=== PATIENT | female | born 1935 | race Caucasian/White ===

== ENCOUNTER 2018-04-29 22:10 | Emergency (ER) | payer MEDICARE, SELFPAY ==
--- NOTE | 2018-04-29 00:20 | DI.CT_ITS ---
SYMPTOM/DIAGNOSIS: RIGHT CVA PAIN CT ABDOMEN AND PELVIS: Renal colic CT was performed according to protocol. There are no priors for comparison. There are mild dependent atelectatic changes seen in the lung bases. Lack of IV contrast does limit evaluation of the abdominal and pelvic organs. The liver is normal in size. There are several hypodense lesions seen within the liver. The largest is seen in the left lobe and measures 2.7 cm. These likely all represent cysts. Follow up is clinically appropriate. The gallbladder is negative. No biliary ductal dilatation is present. The pancreas, spleen and right adrenal gland are unremarkable. There is nodularity of the left adrenal gland which may represent a benign lesion such as an adenoma. The kidneys show no evidence of nephrolithiasis, ureterolithiasis or hydronephrosis. The urinary bladder is distended. Please correlate for clinical symptoms of urinary retention. The patient appears to be status post hysterectomy. The abdominal aorta is of normal caliber. No significant abdominal or pelvic adenopathy, ascites or pneumoperitoneum is seen. The bowel shows no evidence of obstruction or inflammation. There is diverticulosis of the colon but no evidence of acute diverticulitis. No findings to suggest an acute appendicitis are present. There is a small to moderate amount of retained stool throughout the colon. The bones appear osteopenic. There is multi-level degenerative change present. The findings are most marked at L4-5 and L5-S1. There are mild degenerative changes of the hips and sacroiliac joints. There are old healed right rib fractures. IMPRESSION: 1. No evidence of an acute abdomen. 2. No evidence of nephrolithiasis or hydronephrosis 3. Distended urinary bladder. Please correlate clinically for evidence of urinary retention.
[2018-04-29 22:10] VITALS: BP 126/73; PULSE 88; RESP 22; TEMP 36.6; O2SAT 96
[2018-04-29 22:17] VITALS: RESP 16
[2018-04-29 22:43] LABS: Abs Immature Grans 0.04 k/cumm (0.0-0.09); Absolute Basophil Count 0.04 k/cumm (0.0-0.2); Absolute Lymphocyte Count 2.79 k/cumm (1.2-3.4); Absolute Monocyte Count 0.69 k/cumm (0.11-0.7); Absolute Neutrophil Count 3.66 k/cumm (1.2-6.7); Basophils % 0.5; Eosinophils % 1.4; HCT 47.3 % (36.0-46.0); HGB 16.5 g/dL (12.0-15.5); Immature Grans % 0.5; Lymphocytes % 38.1; Mean Corp. HGB Concentration 34.9 g/dL (32.0-36.0); Mean Corpuscular Hemoglobin 29.1 pg (27.0-33.0); Mean Corpuscular Volume 83.4 fL (80-95); Mean Platelet Volume 9.3 fL (8.0-11.0); Monocytes % 9.4; Neutrophils % 50.1; Platelet Count 218 x1000/uL (130-400); RBC 5.67 m/cumm (4.00-5.20); RBC Distribution Width 13.5 % (11.7-14.6); White Blood Cell Count 7.32 k/cumm (4.4-10.8)
[2018-04-29 22:50] LABS: Bilirubin Negative (Negative); Blood Negative (Negative); Clarity Clear; Glucose Negative (Negative); Ketones Negative (Negative); Leukocyte Esterase Small (Negative); Nitrite Negative (Negative); Urobilinogen 0.2 EU/dL (Up TO 0.2)
[2018-04-29 22:57] LABS: *AMPHETAMINES SCREEN URINE Negative (Negative); *BARBITURATES SCREEN URINE Negative (Negative); *BENZODIAZEPINES SCREEN URINE Negative (Negative); Bacteria Negative HPF (Negative); C & S Indicated? Yes; Cannabinoids THC Negative (Negative); Casts Negative LPF (Negative); Cocaine Screen,Urine Negative (Negative); Crystals Negative HPF (Negative); Epithelial Cells Few HPF (Negative); METHADONE URINE SCREEN Negative (Negative); Mucus Negative (Negative); OPIATES URINE SCREEN Negative (Negative); Other Cells Negative (Negative); RBC Negative (0-2)
[2018-04-29 22:58] LABS: Tricyclic Antidepressants POSITIVE (Negative)
[2018-04-29 23:00] VITALS: BP 108/61; PULSE 79; PULSE 81; RESP 18; O2SAT 94
[2018-04-29 23:06] LABS: ALT 22 U/L (12-78); Albumin 3.9 g/dL (3.4-5.0); Alkaline Phosphatase 118 U/L (46-116); Anion Gap 13.2 mmol/L (3-11); BUN 19 mg/dL (7-18); Bilirubin, Total 0.3 mg/dL (0.2-1.0); CO2 23.8 mmol/L (21.0-32.0); CREATININE 0.79 mg/dL (0.55-1.02); Calcium 8.9 mg/dL (8.5-10.1); Chloride 100 mmol/L (98-107); Glucose 127 mg/dL (70-100); Potassium 3.9 mmol/L (3.5-5.1); Sodium 137 mmol/L (136-145); TSH (W/Ref FT4) 3.58 uIU/mL (0.358-3.74); Total Protein 6.7 g/dL (6.4-8.2)
[2018-04-29 23:08] LABS: INR 1.1 (1.0-3.5); Prothrombin Time 10.4 sec (9.3-10.8)
[2018-04-29 23:19] LABS: Salicylate < 2.8 mg/dL (2.8-20.0)
[2018-04-29 23:21] LABS: Acetaminophen < 2 ug/mL (10-30)
--- NOTE | 2018-04-29 23:29 | W.ED.GENAD ---
Discharge Plan Disposition Patient Disposition: HOME Discharge Details Chief Complaint: OD/Poison Clinical Impression: Accidental medication overdose Reason For Visit: JUSTICE Primary Care Provider: SÁNCHEZ HIDALGO ED Provider: Jensen Haskins Home Meds and New Rx's Prescriptions: Continue cyclobenzaprine 5 mg Tablet 5 mg PO TID PRNRF: 0 naproxen sodium 500 mg Tablet, Er Multiphase 24 Hr 1,000 mg PO DAILY RF: 0 Discharge Instructions Instructions: Depression (ED) Additional Instructions: Please take you medication as prescribed. Please follow-up with your primary care physician. Call on Wednesday. Return to the ER for any worsening or new concerning symptoms. Referrals: [facility] [Provider Group] Discharge Data Discharge Date/Time-TO BE ENTERED AT DEPARTURE: 04/30/18 10:35 Medical Decision Making 23:45 -- 82yo f with history of dementia here with accidental overdose of Flexeril and naproxen over the past 48 hour while treating her right mid back pain which she has experienced intermittently in flares for the past 16 years. Patient is well-appearing with no signs of toxicity. ECG reviewed and interpreted by me: Normal sinus rhythm 83 bpm, normal axis, nondiagnostic. I called and spoke with poison control who recommend observation 4-6 hours. Monitor for signs of anticholinergic toxidrome. Given severe chronic intermittent rt back pain some some urinary symptoms, plan to CT renal protocol. Daughter who does not live locally has expressed concern with potential suicidality. Nursing spoke with the patient's friend Piper who notes that the patient did not specifically state she suicidal but has made vague statements about wanting to because of pain in the past. Patient does note that she has depression intermittently and has had thoughts of suicidality when she is having severe pain but did not have these thoughts over the past couple days and specifically did not overdose on these medications in an attempt to harm herself or commit suicide. Screening labs reviewed and mild anion gap acidosis noted. Will give IVF. 1:30 --CT of the abdomen pelvis reviewed and interpreted by radiology: Mild distention of the urinary bladder, clinical correlation for urinary retention is recommended. No additional acute findings within the abdomen and pelvis. Of note there are healed fracture deformities of the posterior right 11th and 12th ribs. Spoke with daughter Veronika at and updated her as to course. 6:50 -- After prolonged ED observation, patient has remained stable with no signs of toxicity. Plan to discharge with outpatient follow-up. Friend to assist in transition home. I will as care management to contact PCP to discuss outpatient mental health social worker available to patient. Disposition decision was made weighing the risks and benefits of hospitalization versus outpatient treatment, the risk for further decompensation, and the patient's wishes. The patient was stable and requested discharge. Prior to discharge, my usual and customary return precautions were reviewed with the patient - this included follow-up instructions and reason to return to the emergency department if condition worsens, does not improve as expected, or other new concerns arise. HPI General Mode of arrival: EMS. Date/Time Provider Initiated Documentation: 04/29/18 22:12. Limitations to Documentation: no limitations. Information obtained by: EMS. HPI Narrative: 82yo f with history of dementia and chronic intermittent right back pain, here with chief complaint of accidental overdose of medication. Patient notes that she took too much of her medication over the past 2 days. Patient specifically states that she took more than prescribed amount of flexeril and naproxen to treat her pain over the past 48 hours. No other ingestion. Pain currently resolved. Pill count confirms that she ingested 22 tabs of flexeril 5mg and 22 tabs of naproxen 500mg over the past 48 hours. Friends note that she has increased confusion over the past few weeks. Daughter notes concern for depression and potential for suicidal attempt and self harm. Patient denies suicidality. She states that she has had suicidal thoughts in the past when she has severe back pain. She has had thoughts recently but specifically states that she is not suicidal now and did not attempt to harm herself or kill herself by overdosing on her medications. Related Data Home Medications Medication Instructions Recorded Confirmed cyclobenzaprine 5 mg PO TID PRN 04/29/18 04/29/18 naproxen sodium 1,000 mg PO DAILY 04/29/18 04/29/18 Allergies Allergy/AdvReac Type Severity Reaction Status Date / Time No Known Allergies Allergy Unverified 04/29/18 23:58 General Stated Complaint: OD/Poison PRESTON: 2 Review of Systems Review of Systems All systems reviewed & are unremarkable except as noted in HPI and below Gastrointestinal Denies abdominal pain and Denies nausea Genitourinary Denies hematuria, Reports urinary frequency (when she experiences back pain) and Denies dysuria Musculoskeletal Reports as per HPI Psychiatric Reports depression (at times) and Denies suicidal ideation PFSH Medical History Dementia (Chronic) Social History Smoking/Tobacco Use Status: Never Exam Const General: cooperative and no acute distress HENMT Head: normocephalic and atraumatic Mouth: moist mucous membranes Eyes Conjunctivae: normal conjunctivae Sclera: normal sclerae EOM: EOM intact bilaterally Neck Neck: trachea midline and supple Resp Auscultation: clear to auscultation bilaterally, no rales, no rhonchi and no wheezes Cardio Jugular venous pressure: no JVD Rate: regular rate and not tachycardic Rhythm: regular rhythm GI Palpation: soft, not firm, no guarding, no masses, not rigid and nontender Skin General skin exam: no rashes or lesions noted Neuro General: alert, awake, oriented x3 and tone normal Extrem General: no edema Psych Appearance: grossly normal Mental Status: mental status grossly normal Speech and Movement: speech and movement normal Mood: congruent mood Affect: normal affect Attitude: cooperative Thought Content: suicidality Course Vital Signs Temperature 36.6 C 04/29/18 22:10 Pulse 88 04/29/18 22:10 Respiratory Rate 22 04/29/18 22:10 Blood Pressure 126/73 04/29/18 22:10 Pulse Oximetry 96 04/29/18 22:10 Temperature 36.6 C 04/29/18 22:10 Temperature Source Skin 04/29/18 22:10 Pulse 88 04/29/18 22:10 Respiratory Rate 16 04/29/18 22:17 Respiratory Effort Non-Labored 04/29/18 22:38 Respiratory Depth Normal 04/29/18 22:17 Respiratory Pattern Normal 04/29/18 22:17 Blood Pressure 126/73 04/29/18 22:10 Pulse Oximetry 96 04/29/18 22:10 Oxygen Delivery Method Room Air 04/29/18 22:10 Oxygen Flow Rate 0 04/29/18 22:10 Lab/Test Results Lab/Test Results: 04/29/18 22:25 Urine - Reflex from Ua Urine Culture - Pending Laboratory Tests Range/Units 04/29/18 04/29/18 04/29/18 22:25 22:25 22:30 WBC (4.4-10.8) k/cumm RBC (4.00-5.20) m/cumm Hgb (12.0-15.5) g/dL Hct (36.0-46.0) % MCV (80-95) fL MCH (27.0-33.0) pg MCHC (32.0-36.0) g/dL RDW (11.7-14.6) % Plt Count (130-400) x1000/uL MPV (8.0-11.0) fL Immature Gran % Neutrophils % Lymphocytes % Monocytes % Eosinophils % Basophils % Absolute Neutrophils (1.2-6.7) k/cumm Absolute Lymphocytes (1.2-3.4) k/cumm Absolute Monocytes (0.11-0.7) k/cumm Absolute Eosinophils (0.0-0.7) k/cumm Absolute Basophils (0.0-0.2) k/cumm PT (9.3-10.8) sec INR (1.0-3.5) Sodium (136-145) mmol/L 137 Potassium (3.5-5.1) mmol/L 3.9 Chloride (98-107) mmol/L 100 Carbon Dioxide (21.0-32.0) mmol/L 23.8 Anion Gap (3-11) mmol/L 13.2 H BUN (7-18) mg/dL 19 H Creatinine (0.55-1.02) mg/dL 0.79 Estimated GFR/1.73 m2 (mL/min/1.73m2) >= 60.00 Glucose (70-100) mg/dL 127 H Calcium (8.5-10.1) mg/dL 8.9 Total Bilirubin (0.2-1.0) mg/dL 0.3 ALT (12-78) U/L 22 Alkaline Phosphatase (46-116) U/L 118 H Total Protein (6.4-8.2) g/dL 6.7 Albumin (3.4-5.0) g/dL 3.9 TSH (0.358-3.74) uIU/mL 3.58 Urine Color (Yellow) Yellow Urine Clarity Clear Urine pH (5-8) 5.0 Ur Specific [place] (1.005-1.025) 1.010 Urine Protein (Negative) mg/dL Negative Urine Ketones (Negative) mg/dL Negative Urine Blood (Negative) Negative Urine Nitrite (Negative) Negative Urine Bilirubin (Negative) Negative Urine Urobilinogen (Up TO 0.2) EU/dL 0.2 Ur Leukocyte Esterase (Negative) Small H Urine RBC (0-2) Negative Urine WBC (0-5) HPF 5-10 Ur Epithelial Cells (Negative) HPF Few Urine Crystals (Negative) HPF Negative Urine Bacteria (Negative) HPF Negative Urine Casts (Negative) LPF Negative Urine Mucus (Negative) Negative Urine Other (Negative) Negative Ur Culture Indicated? Yes Urine Glucose (Negative) mg/dL Negative Salicylates (2.8-20.0) mg/dL Urine Opiates Screen (Negative) Negative Urine Methadone Screen (Negative) Negative Acetaminophen (10-30) ug/mL Ur Barbiturates Screen (Negative) Negative Ur Tricyclics Screen (Negative) Positive Ur Amphetamines Screen (Negative) Negative U Benzodiazepines Scrn (Negative) Negative Urine Cocaine Screen (Negative) Negative Ur THC Screen (Negative) Negative Range/Units 04/29/18 04/29/18 04/29/18 22:30 22:30 22:30 WBC (4.4-10.8) k/cumm 7.32 RBC (4.00-5.20) m/cumm 5.67 H Hgb (12.0-15.5) g/dL 16.5 H Hct (36.0-46.0) % 47.3 H MCV (80-95) fL 83.4 MCH (27.0-33.0) pg 29.1 MCHC (32.0-36.0) g/dL 34.9 RDW (11.7-14.6) % 13.5 Plt Count (130-400) x1000/uL 218 MPV (8.0-11.0) fL 9.3 Immature Gran % 0.5 Neutrophils % 50.1 Lymphocytes % 38.1 Monocytes % 9.4 Eosinophils % 1.4 Basophils % 0.5 Absolute Neutrophils (1.2-6.7) k/cumm 3.66 Absolute Lymphocytes (1.2-3.4) k/cumm 2.79 Absolute Monocytes (0.11-0.7) k/cumm 0.69 Absolute Eosinophils (0.0-0.7) k/cumm 0.10 Absolute Basophils (0.0-0.2) k/cumm 0.04 PT (9.3-10.8) sec 10.4 INR (1.0-3.5) 1.1 Sodium (136-145) mmol/L Potassium (3.5-5.1) mmol/L Chloride (98-107) mmol/L Carbon Dioxide (21.0-32.0) mmol/L Anion Gap (3-11) mmol/L BUN (7-18) mg/dL Creatinine (0.55-1.02) mg/dL Estimated GFR/1.73 m2 (mL/min/1.73m2) Glucose (70-100) mg/dL Calcium (8.5-10.1) mg/dL Total Bilirubin (0.2-1.0) mg/dL ALT (12-78) U/L Alkaline Phosphatase (46-116) U/L Total Protein (6.4-8.2) g/dL Albumin (3.4-5.0) g/dL TSH (0.358-3.74) uIU/mL Urine Color (Yellow) Urine Clarity Urine pH (5-8) Ur Specific [place] (1.005-1.025) Urine Protein (Negative) mg/dL Urine Ketones (Negative) mg/dL Urine Blood (Negative) Urine Nitrite (Negative) Urine Bilirubin (Negative) Urine Urobilinogen (Up TO 0.2) EU/dL Ur Leukocyte Esterase (Negative) Urine RBC (0-2) Urine WBC (0-5) HPF Ur Epithelial Cells (Negative) HPF Urine Crystals (Negative) HPF Urine Bacteria (Negative) HPF Urine Casts (Negative) LPF Urine Mucus (Negative) Urine Other (Negative) Ur Culture Indicated? Urine Glucose (Negative) mg/dL Salicylates (2.8-20.0) mg/dL < 2.8 L Urine Opiates Screen (Negative) Urine Methadone Screen (Negative) Acetaminophen (10-30) ug/mL < 2 L Ur Barbiturates Screen (Negative) Ur Tricyclics Screen (Negative) Ur Amphetamines Screen (Negative) U Benzodiazepines Scrn (Negative) Urine Cocaine Screen (Negative) Ur THC Screen (Negative)
[2018-04-29 23:30] LABS: ETHANOL BLOOD < 3.0 mg/dL (<3)
--- NOTE | 2018-04-29 23:36 | ED.GENADUL_ITS ---
Discharge Plan Disposition Patient Disposition: HOME Discharge Details Chief Complaint: OD/Poison Clinical Impression: Accidental medication overdose Reason For Visit: JUSTICE Primary Care Provider: SÁNCHEZ HIDALGO ED Provider: Jensen Haskins Home Meds and New Rx's Prescriptions: Continue cyclobenzaprine 5 mg Tablet 5 mg PO TID PRNRF: 0 naproxen sodium 500 mg Tablet, Er Multiphase 24 Hr 1,000 mg PO DAILY RF: 0 Discharge Instructions Instructions: Depression (ED) Additional Instructions: Please take you medication as prescribed. Please follow-up with your primary care physician. Call on Wednesday. Return to the ER for any worsening or new concerning symptoms. Referrals: [facility] [employer] [Provider Group] Discharge Data Discharge Date/Time-TO BE ENTERED AT DEPARTURE: 04/30/18 10:35 Medical Decision Making 23:45 -- 82yo f with history of dementia here with accidental overdose of Flexeril and naproxen over the past 48 hour while treating her right mid back pain which she has experienced intermittently in flares for the past 16 years. Patient is well-appearing with no signs of toxicity. ECG reviewed and interpreted by me: Normal sinus rhythm 83 bpm, normal axis, nondiagnostic. I called and spoke with poison control who recommend observation 4-6 hours. Monitor for signs of anticholinergic toxidrome. Given severe chronic intermittent rt back pain some some urinary symptoms, plan to CT renal protocol. Daughter who does not live locally has expressed concern with potential suicidality. Nursing spoke with the patient's friend Piper who notes that the patient did not specifically state she suicidal but has made vague statements about wanting to because of pain in the past. Patient does note that she has depression intermittently and has had thoughts of suicidality when she is having severe pain but did not have these thoughts over the past couple days and specifically did not overdose on these medications in an attempt to harm herself or commit suicide. Screening labs reviewed and mild anion gap acidosis noted. Will give IVF. 1:30 --CT of the abdomen pelvis reviewed and interpreted by radiology: Mild distention of the urinary bladder, clinical correlation for urinary retention is recommended. No additional acute findings within the abdomen and pelvis. Of note there are healed fracture deformities of the posterior right 11th and 12th ribs. Spoke with daughter Veronika at and updated her as to course. 6:50 -- After prolonged ED observation, patient has remained stable with no signs of toxicity. Plan to discharge with outpatient follow-up. Friend to assist in transition home. I will as care management to contact PCP to discuss outpatient social work nurse available to patient. Disposition decision was made weighing the risks and benefits of hospitalization versus outpatient treatment, the risk for further decompensation , and the patient's wishes. The patient was stable and requested discharge. Prior to discharge, my usual and customary return precautions were reviewed with the patient - this included follow-up instructions and reason to return to the emergency department if condition worsens, does not improve as expected, or other new concerns arise. HPI General Mode of arrival: EMS . Date/Time Provider Initiated Documentation: 04/29/18 22:12 . Limitations to Documentation: no limitations . Information obtained by: EMS . HPI Narrative: 82yo f with history of dementia and chronic intermittent right back pain, here with chief complaint of accidental overdose of medication. Patient notes that she took too much of her medication over the past 2 days. Patient specifically states that she took more than prescribed amount of flexeril and naproxen to treat her pain over the past 48 hours. No other ingestion. Pain currently resolved. Pill count confirms that she ingested 22 tabs of flexeril 5mg and 22 tabs of naproxen 500mg over the past 48 hours. Friends note that she has increased confusion over the past few weeks. Daughter notes concern for depression and potential for suicidal attempt and self harm. Patient denies suicidality. She states that she has had suicidal thoughts in the past when she has severe back pain. She has had thoughts recently but specifically states that she is not suicidal now and did not attempt to harm herself or kill herself by overdosing on her medications. Related Data Home Medications Medication Instructions Recorded Confirmed cyclobenzaprine 5 mg PO TID PRN 04/29/18 04/29/18 naproxen sodium 1,000 mg PO DAILY 04/29/18 04/29/18 Allergies Allergy/AdvReac Type Severity Reaction Status Date / Time No Known Allergies Allergy Unverified 04/29/18 23:58 General Stated Complaint: OD/Poison PRESTON: 2 Review of Systems Review of Systems All systems reviewed & are unremarkable except as noted in HPI and below Gastrointestinal Denies abdominal pain and Denies nausea Genitourinary Denies hematuria, Reports urinary frequency (when she experiences back pain) and Denies dysuria Musculoskeletal Reports as per HPI Psychiatric Reports depression (at times) and Denies suicidal ideation PFSH Medical History Dementia (Chronic) Social History Smoking/Tobacco Use Status: Never Exam Const General: cooperative and no acute distress HENMT Head: normocephalic and atraumatic Mouth: moist mucous membranes Eyes Conjunctivae: normal conjunctivae Sclera: normal sclerae EOM: EOM intact bilaterally Neck Neck: trachea midline and supple Resp Auscultation: clear to auscultation bilaterally, no rales, no rhonchi and no wheezes Cardio Jugular venous pressure: no JVD Rate: regular rate and not tachycardic Rhythm: regular rhythm GI Palpation: soft, not firm, no guarding, no masses, not rigid and nontender Skin General skin exam: no rashes or lesions noted Neuro General: alert, awake, oriented x3 and tone normal Extrem General: no edema Psych Appearance: grossly normal Mental Status: mental status grossly normal Speech and Movement: speech and movement normal Mood: congruent mood Affect: normal affect Attitude: cooperative Thought Content: suicidality Course Vital Signs Temperature 36.6 C 04/29/18 22:10 Pulse 88 04/29/18 22:10 Respiratory Rate 22 04/29/18 22:10 Blood Pressure 126/73 04/29/18 22:10 Pulse Oximetry 96 04/29/18 22:10 Temperature 36.6 C 04/29/18 22:10 Temperature Source Skin 04/29/18 22:10 Pulse 88 04/29/18 22:10 Respiratory Rate 16 04/29/18 22:17 Respiratory Effort Non-Labored 04/29/18 22:38 Respiratory Depth Normal 04/29/18 22:17 Respiratory Pattern Normal 04/29/18 22:17 Blood Pressure 126/73 04/29/18 22:10 Pulse Oximetry 96 04/29/18 22:10 Oxygen Delivery Method Room Air 04/29/18 22:10 Oxygen Flow Rate 0 04/29/18 22:10 Lab/Test Results Lab/Test Results: 04/29/18 22:25 Urine - Reflex from Ua Urine Culture - Pending Laboratory Tests Range/Units 04/29/18 04/29/18 04/29/18 22:25 22:25 22:30 WBC (4.4-10.8) k/cumm RBC (4.00-5.20) m/cumm Hgb (12.0-15.5) g/dL Hct (36.0-46.0) % MCV (80-95) fL MCH (27.0-33.0) pg MCHC (32.0-36.0) g/dL RDW (11.7-14.6) % Plt Count (130-400) x1000/uL MPV (8.0-11.0) fL Immature Gran % Neutrophils % Lymphocytes % Monocytes % Eosinophils % Basophils % Absolute Neutrophils (1.2-6.7) k/cumm Absolute Lymphocytes (1.2-3.4) k/cumm Absolute Monocytes (0.11-0.7) k/cumm Absolute Eosinophils (0.0-0.7) k/cumm Absolute Basophils (0.0-0.2) k/cumm PT (9.3-10.8) sec INR (1.0-3.5) Sodium (136-145) mmol/L 137 Potassium (3.5-5.1) mmol/L 3.9 Chloride (98-107) mmol/L 100 Carbon Dioxide (21.0-32.0) mmol/L 23.8 Anion Gap (3-11) mmol/L 13.2 H BUN (7-18) mg/dL 19 H Creatinine (0.55-1.02) mg/dL 0.79 Estimated GFR/1.73 m2 (mL/min/1.73m2) >= 60.00 Glucose (70-100) mg/dL 127 H Calcium (8.5-10.1) mg/dL 8.9 Total Bilirubin (0.2-1.0) mg/dL 0.3 ALT (12-78) U/L 22 Alkaline Phosphatase (46-116) U/L 118 H Total Protein (6.4-8.2) g/dL 6.7 Albumin (3.4-5.0) g/dL 3.9 TSH (0.358-3.74) uIU/mL 3.58 Urine Color (Yellow) Yellow Urine Clarity Clear Urine pH (5-8) 5.0 Ur Specific [place] (1.005-1.025) 1.010 Urine Protein (Negative) mg/dL Negative Urine Ketones (Negative) mg/dL Negative Urine Blood (Negative) Negative Urine Nitrite (Negative) Negative Urine Bilirubin (Negative) Negative Urine Urobilinogen (Up TO 0.2) EU/dL 0.2 Ur Leukocyte Esterase (Negative) Small H Urine RBC (0-2) Negative Urine WBC (0-5) HPF 5-10 Ur Epithelial Cells (Negative) HPF Few Urine Crystals (Negative) HPF Negative Urine Bacteria (Negative) HPF Negative Urine Casts (Negative) LPF Negative Urine Mucus (Negative) Negative Urine Other (Negative) Negative Ur Culture Indicated? Yes Urine Glucose (Negative) mg/dL Negative Salicylates (2.8-20.0) mg/dL Urine Opiates Screen (Negative) Negative Urine Methadone Screen (Negative) Negative Acetaminophen (10-30) ug/mL Ur Barbiturates Screen (Negative) Negative Ur Tricyclics Screen (Negative) Positive Ur Amphetamines Screen (Negative) Negative U Benzodiazepines Scrn (Negative) Negative Urine Cocaine Screen (Negative) Negative Ur THC Screen (Negative) Negative Range/Units 04/29/18 04/29/18 04/29/18 22:30 22:30 22:30 WBC (4.4-10.8) k/cumm 7.32 RBC (4.00-5.20) m/cumm 5.67 H Hgb (12.0-15.5) g/dL 16.5 H Hct (36.0-46.0) % 47.3 H MCV (80-95) fL 83.4 MCH (27.0-33.0) pg 29.1 MCHC (32.0-36.0) g/dL 34.9 RDW (11.7-14.6) % 13.5 Plt Count (130-400) x1000/uL 218 MPV (8.0-11.0) fL 9.3 Immature Gran % 0.5 Neutrophils % 50.1 Lymphocytes % 38.1 Monocytes % 9.4 Eosinophils % 1.4 Basophils % 0.5 Absolute Neutrophils (1.2-6.7) k/cumm 3.66 Absolute Lymphocytes (1.2-3.4) k/cumm 2.79 Absolute Monocytes (0.11-0.7) k/cumm 0.69 Absolute Eosinophils (0.0-0.7) k/cumm 0.10 Absolute Basophils (0.0-0.2) k/cumm 0.04 PT (9.3-10.8) sec 10.4 INR (1.0-3.5) 1.1 Sodium (136-145) mmol/L Potassium (3.5-5.1) mmol/L Chloride (98-107) mmol/L Carbon Dioxide (21.0-32.0) mmol/L Anion Gap (3-11) mmol/L BUN (7-18) mg/dL Creatinine (0.55-1.02) mg/dL Estimated GFR/1.73 m2 (mL/min/1.73m2) Glucose (70-100) mg/dL Calcium (8.5-10.1) mg/dL Total Bilirubin (0.2-1.0) mg/dL ALT (12-78) U/L Alkaline Phosphatase (46-116) U/L Total Protein (6.4-8.2) g/dL Albumin (3.4-5.0) g/dL TSH (0.358-3.74) uIU/mL Urine Color (Yellow) Urine Clarity Urine pH (5-8) Ur Specific [place] (1.005-1.025) Urine Protein (Negative) mg/dL Urine Ketones (Negative) mg/dL Urine Blood (Negative) Urine Nitrite (Negative) Urine Bilirubin (Negative) Urine Urobilinogen (Up TO 0.2) EU/dL Ur Leukocyte Esterase (Negative) Urine RBC (0-2) Urine WBC (0-5) HPF Ur Epithelial Cells (Negative) HPF Urine Crystals (Negative) HPF Urine Bacteria (Negative) HPF Urine Casts (Negative) LPF Urine Mucus (Negative) Urine Other (Negative) Ur Culture Indicated? Urine Glucose (Negative) mg/dL Salicylates (2.8-20.0) mg/dL < 2.8 L Urine Opiates Screen (Negative) Urine Methadone Screen (Negative) Acetaminophen (10-30) ug/mL < 2 L Ur Barbiturates Screen (Negative) Ur Tricyclics Screen (Negative) Ur Amphetamines Screen (Negative) U Benzodiazepines Scrn (Negative) Urine Cocaine Screen (Negative) Ur THC Screen (Negative)
[2018-04-29 23:40] VITALS: PULSE 80; RESP 20; O2SAT 94
[2018-04-29 23:47] LABS: AST 9 U/L (15-37)
[2018-04-29 23:50] VITALS: PULSE 79; RESP 25; O2SAT 95
[2018-04-29] MEDS: Normal Saline 1,000 ML 1000 ML IV (23:53)
[2018-04-30] VITALS (15 sets, daily range): BP systolic 115–124; BP diastolic 67–71; PULSE 71–99; RESP 14–24; TEMP 36.7; O2SAT 93–100
--- NOTE | 2018-04-30 00:44 | DI.VRAD_ITS ---
EXAM: CT Abdomen and Pelvis Without Intravenous Contrast EXAM DATE/TIME: 04/29/2018 11:29 PM CLINICAL HISTORY: 82 years old, female; Pain; Other: Back/ flank; Patient HX: Back/flank pain on and off for 10 years. 1 prior abdominal surgery but PT can not remember what kind and states it was a long time ago TECHNIQUE: Axial computed tomography images of the abdomen and pelvis without intravenous contrast. All CT scans at this facility use at least one of these dose optimization techniques: automated exposure control; mA and/or kV adjustment per patient size (includes targeted exams where dose is matched to clinical indication); or iterative reconstruction. Coronal and sagittal reformatted images were created and reviewed. COMPARISON: No relevant prior studies available. FINDINGS: Lower thorax: Dependent changes at the lung bases with right basilar atelectasis. No pleural effusion. Normal heart size without pericardial effusion. Coronary artery calcifications. ABDOMEN: Liver: Scattered subcentimeter hepatic hypodensities, too small to further characterize. 2.4 cm left hepatic lobe cyst. There is diffusely slightly increased hepatic attenuation, nonspecific, this finding can be seen in the setting of iron deposition or medication effects. Gallbladder and bile ducts: Normal. No calcified stones. No ductal dilation. Pancreas: Normal. No ductal dilation. Spleen: Normal. No splenomegaly. Adrenals: Low attenuation left adrenal lesion measuring 1.1 cm in keeping with an adrenal adenoma. Kidneys and ureters: The kidneys are within normal limits without hydronephrosis, perinephric stranding, or radiodense calculi. Stomach and bowel: Moderate volume of stool throughout the colon. There is mild diverticulosis without evidence of acute diverticulitis. Appendix: No evidence of appendicitis. PELVIS: Bladder: The urinary bladder is distended, clinical correlation for urinary retention is recommended. Reproductive: Hysterectomy. ABDOMEN and PELVIS: Intraperitoneal space: Normal. No free air. No significant fluid collection. Bones/joints: Diffuse osseous demineralization. Degenerative changes of the bilateral hips, right ureter than left. Degenerative changes of the sacroiliac joints. Healed fracture deformities of the posterior right 11th and 12th ribs. Mild multilevel degenerative changes of the spine, most severe at L4-L5 and L5-S1. Soft tissues: Unremarkable. Vasculature: Mild aorto iliac atherosclerotic calcification. Tiny calcifications in the right lower quadrant, likely phleboliths. Lymph nodes: Normal. No enlarged lymph nodes. IMPRESSION: 1. Mild distention of the urinary bladder, clinical correlation for urinary retention is recommended. 2. No additional acute findings within the abdomen or pelvis. Dictated and Authenticated by: Rocio Nath MD. Ordering:LAWRENCE DUMONT MD
--- NOTE | 2018-04-30 01:36 | NUR.NOTE ---
Nursing Note: Poison controlled called- spoke with this nurse. Evaluation of pt as follows: remains alert and oriented, up independently with steady gait. Pt voices no complaints and VS remain stable- pt in NSR, afebrile. Poison control states they are closing out case and note that they can be called again if pt becomes symptomatic but if she was going to be, she probably would be by now. Will continue to monitor.
--- NOTE | 2018-04-30 07:05 | NUR.NOTE ---
Nursing Note: Spoke with Piper (friend @ [phone]). Piper is concerned about ability of pt to manage own medications- states she is unable to drive in this weather and has asked this nurse to contact friend, Bay @ [phone]. Bay echo sentiment of concern for home medication administration. Pt is on care management list for assistance. has spoke with daughter, Veronika @ [phone] and discussed pt presentation here in ED versus home concerns. See MD note for any particular details about the phone interaction. Bay to garbage pick up man pt at 0900 this AM. States friend will discuss options for the weekend. Pt given breakfast and is up in chair, reading morning paper. Remains alert, oriented and without complaints of pain at this time.
--- NOTE | 2018-04-30 07:30 | NUR.NOTE ---
Assumed care of patient, she is in no distress. VSS, updated. Ate a breakfast, is waiting for a ride.
== END 2018-04-30 10:35 | disposition home or self-care (01) ==
PROVIDERS: Emergency Provider Student in an Organized Health Care Education/Training Program; PCP Family Medicine
DX: T48.1X1A Poisoning by skeletal muscle relaxants [neuromuscular blocking agents], accidental (unintentional), initial encounter (principal); T39.311A Poisoning by propionic acid derivatives, accidental (unintentional), initial encounter; F03.90 Unspecified dementia, unspecified severity, without behavioral disturbance, psychotic disturbance, mood disturbance, and anxiety; M54.5 Low back pain; G89.29 Other chronic pain
CPT/HCPCS: 36415; 80053; 80307; 93005; 96360; 99285; 74176; 80320; 80329; 81003; 81015; 84443; 85025; 85610; 87086; 93010

== ENCOUNTER 2018-07-27 17:40 | Outpatient (REF) | payer MEDICARE, SELFPAY ==
--- NOTE | 2018-07-27 15:00 | SKI_PTH ---
PATIENT: Salvatore Hodgson LOC: [facility] U#:[id number] AGE/SX: 82/F ROOM: RE07/27/[address]: Lucy Denny : 1935 BED: DIS: 07/27/2018 SPEC #: [id number] RECD: 07/28/18 12:53 STATUS: SHRAVAN REYumi #: [id number] JANAE: 07/27/18 15:[address]: Lucy Denny DEPT: Surgical Specimen RECD BY: Dilcia Caal ENTERED: 07/28/18 12:54 SP TYPE: ALICE ALMAZAN DR: Benedicto Rubio Tissues: 1 - SKIN BIOPSY(SHAVE/PUNCH) Procedures: SKIN LEVEL 4 Comments: [id number]
== END 2018-07-27 18:00 ==
LOC: NCHCN 17:40
PROVIDERS: PCP Family Medicine; Visit Provider Family Medicine
DX: B07.9 Viral wart, unspecified (principal); L85.8 Other specified epidermal thickening
CPT/HCPCS: 88305

== ENCOUNTER 2019-03-21 16:10 | Outpatient (REF) | payer MEDICARE, SELFPAY ==
[2019-03-21 21:54] LABS: Abs Immature Grans 0.03 k/cumm (0.0-0.09); Absolute Basophil Count 0.02 k/cumm (0.0-0.2); Absolute Lymphocyte Count 2.17 k/cumm (1.2-3.4); Absolute Monocyte Count 0.93 k/cumm (0.11-0.7); Basophils % 0.2; Eosinophils % 1.2; HGB 15.3 g/dL (12.0-15.5); Immature Grans % 0.4; Lymphocytes % 26.6; Mean Corp. HGB Concentration 35.6 g/dL (32.0-36.0); Mean Corpuscular Hemoglobin 29.4 pg (27.0-33.0); Mean Corpuscular Volume 82.7 fL (80-95); Monocytes % 11.4; Neutrophils % 60.2; Platelet Count 274 x1000/uL (130-400); White Blood Cell Count 8.15 k/cumm (4.4-10.8)
[2019-03-21 22:01] LABS: ALT 48 U/L (14-59); Albumin 3.9 g/dL (3.4-5.0); Alkaline Phosphatase 97 U/L (46-116); BUN 16 mg/dL (7-18); Bilirubin, Total 0.5 mg/dL (0.2-1.0); CREATININE 0.88 mg/dL (0.55-1.02); Calcium 8.7 mg/dL (8.5-10.1); Chloride 104 mmol/L (98-107); Glucose 97 mg/dL (70-100); Lipase 280 U/L (73-393); Sodium 139 mmol/L (136-145); Total Protein 6.4 g/dL (6.4-8.2)
[2019-03-21 22:05] LABS: Bacteria Negative HPF (Negative); C & S Indicated? No; Casts Negative LPF (Negative); Crystals Negative HPF (Negative); Epithelial Cells Few HPF (Negative); Mucus Negative (Negative); Other Cells Negative (Negative); RBC Negative (0-2)
[2019-03-21 22:28] LABS: AST 25 U/L (15-37)
== END 2019-03-21 16:30 ==
LOC: NCHCN 16:10
PROVIDERS: PCP Family Medicine; Visit Provider Family Medicine
DX: R10.9 Unspecified abdominal pain (principal)
CPT/HCPCS: 80053; 83690; 81015; 85025

== ENCOUNTER 2019-05-15 16:15 | Outpatient (REF) | payer MEDICARE, SELFPAY ==
[2019-05-15 21:53] LABS: Abs Immature Grans 0.02 k/cumm (0.0-0.09); Absolute Basophil Count 0.04 k/cumm (0.0-0.2); Absolute Eosinophil Count 0.13 k/cumm (0.0-0.7); Absolute Lymphocyte Count 2.51 k/cumm (1.2-3.4); Absolute Monocyte Count 0.79 k/cumm (0.11-0.7); Basophils % 0.5; Eosinophils % 1.7; HCT 43.2 % (36.0-46.0); HGB 15.5 g/dL (12.0-15.5); Immature Grans % 0.3; Lymphocytes % 33.1; Mean Corp. HGB Concentration 35.9 g/dL (32.0-36.0); Mean Corpuscular Hemoglobin 29.5 pg (27.0-33.0); Mean Corpuscular Volume 82.1 fL (80-95); Mean Platelet Volume 10.6 fL (8.0-11.0); Monocytes % 10.4; Platelet Count 242 x1000/uL (130-400); RBC 5.26 m/cumm (4.00-5.20); RBC Distribution Width 12.9 % (11.7-14.6); White Blood Cell Count 7.59 k/cumm (4.4-10.8)
[2019-05-15 22:56] LABS: ALT 53 U/L (14-59); Albumin 4.1 g/dL (3.4-5.0); Alkaline Phosphatase 99 U/L (46-116); Anion Gap 13.1 mmol/L (3-11); BUN 14 mg/dL (7-18); Bilirubin, Total 0.6 mg/dL (0.2-1.0); CO2 24.9 mmol/L (21.0-32.0); CREATININE 1.32 mg/dL (0.55-1.02); Calcium 8.9 mg/dL (8.5-10.1); Chloride 103 mmol/L (98-107); Estimated GFR 38.53 (mL/min/1.73m2); Glucose 167 mg/dL (74-106); Sodium 141 mmol/L (136-145); TSH (W/Ref FT4) 2.12 uIU/mL (0.36-3.74); Total Protein 6.6 g/dL (6.4-8.2)
[2019-05-15 23:20] LABS: AST 48 U/L (15-37)
== END 2019-05-15 16:35 ==
LOC: NCHCN 16:15
PROVIDERS: PCP Family Medicine; Visit Provider Nurse Practitioner Community Health
DX: R60.0 Localized edema (principal); H93.13 Tinnitus, bilateral
CPT/HCPCS: 80053; 84443; 85025

== ENCOUNTER 2019-05-24 18:56 | Outpatient (REF) | payer MEDICARE, SELFPAY ==
[2019-05-24 21:39] LABS: ALT 51 U/L (14-59); AST 26 U/L (15-37); Albumin 3.8 g/dL (3.4-5.0); Alkaline Phosphatase 84 U/L (46-116); Anion Gap 10.6 mmol/L (3-11); BUN 18 mg/dL (7-18); Bilirubin, Total 0.5 mg/dL (0.2-1.0); CO2 26.4 mmol/L (21.0-32.0); CREATININE 0.98 mg/dL (0.55-1.02); Calcium 9.1 mg/dL (8.5-10.1); Chloride 102 mmol/L (98-107); Estimated GFR 54.33 (mL/min/1.73m2); Glucose 151 mg/dL (74-106); Sodium 139 mmol/L (136-145); Total Protein 6.3 g/dL (6.4-8.2)
== END 2019-05-24 19:16 ==
LOC: NCHCN 18:56
PROVIDERS: PCP Family Medicine; Visit Provider Family Medicine
DX: R94.4 Abnormal results of kidney function studies (principal)
CPT/HCPCS: 80053

== ENCOUNTER 2020-06-10 01:30 | Outpatient (CLI) | payer MEDICARE, SELFPAY ==
[2020-06-10] VITALS (9 sets, daily range): BP systolic 97–156; BP diastolic 65–93; PULSE 88–120; RESP 18–28; TEMP 36.4–37.1; O2SAT 90–94
[2020-06-10] MEDS: Normal Saline 500 ML 30 ML IV (11:30)
[2020-06-10] MEDS: Normal Saline Flush 10 ML SYR IVP (12:14)
== END 2020-06-10 01:50 ==
PROVIDERS: PCP Family Medicine; Visit Provider Family Medicine
DX: U07.1 COVID-19 (principal)
CPT/HCPCS: 96365

== ENCOUNTER 2021-08-29 20:21 | Outpatient (REF) | payer MEDICARE, SELFPAY ==
[2021-08-29 14:17] LABS: Abs Immature Grans 0.03 10^3/uL (0.0-0.06); Absolute Basophil Count 0.05 10^3/uL (0.0-0.2); Absolute Eosinophil Count 0.04 10^3/uL (0.0-0.7); Absolute Lymphocyte Count 1.52 10^3/uL (1.2-3.4); Absolute Monocyte Count 0.76 10^3/uL (0.1-0.8); Absolute Neutrophil Count 6.54 10^3/uL (1.2-6.7); Basophils % 0.6; Eosinophils % 0.4; HCT 45.2 % (36.0-46.0); HGB 15.5 g/dL (11.2-15.7); Immature Grans % 0.3; MCH 29.1 pg (27.0-33.0); MCHC 34.3 % (32.0-36.0); MCV 84.8 fL (80-95); Monocytes % 8.5; Neutrophils % 73.2; Nucleated RBC 0 %; RBC 5.33 10^6/uL (3.93-5.22); RDW 12.3 % (11.7-14.6); RDW-SD 37.6 fL; WBC 8.94 10^3/uL (4.4-10.8)
[2021-08-29 14:36] LABS: Diff Comment PLT Morph Reviewed
[2021-08-29 14:37] LABS: RBC Morphology Normal
[2021-08-29 15:08] LABS: ALT 46 U/L (14-59); AST 22 U/L (15-37); Albumin 3.9 g/dL (3.4-5.0); Alkaline Phosphatase 120 U/L (46-116); Anion Gap 11.2 mmol/L (3-11); BUN 18 mg/dL (7-18); CO2 22.8 mmol/L (21.0-32.0); Chloride 101 mmol/L (98-107); Estimated GFR 52.82 (mL/min/1.73m2); Glucose 460 mg/dL (74-106); Potassium 4.6 mmol/L (3.5-5.1); Sodium 135 mmol/L (136-145); Total Protein 6.4 g/dL (6.4-8.2); Vitamin B12 598 pg/mL (193-986)
[2021-08-29 15:16] LABS: Calcium 9.1 mg/dL (8.5-10.1)
== END 2021-08-29 20:22 | disposition home or self-care (01) ==
LOC: NCHCN 20:21
PROVIDERS: PCP Family Medicine; Visit Provider Family Medicine
DX: F22 Delusional disorders (principal); F03.90 Unspecified dementia, unspecified severity, without behavioral disturbance, psychotic disturbance, mood disturbance, and anxiety
CPT/HCPCS: 80053; 82607; 83036; 85025

== ENCOUNTER 2021-12-09 16:47 | Outpatient (REF) | payer MEDICARE, SELFPAY ==
[2021-12-09 19:59] LABS: Abs Immature Grans 0.02 10^3/uL (0.0-0.06); Absolute Basophil Count 0.06 10^3/uL (0.0-0.2); Absolute Eosinophil Count 0.08 10^3/uL (0.0-0.7); Absolute Lymphocyte Count 2.16 10^3/uL (1.2-3.4); Absolute Monocyte Count 0.78 10^3/uL (0.1-0.8); Basophils % 0.8; HCT 44.2 % (36.0-46.0); HGB 15.7 g/dL (11.2-15.7); Immature Grans % 0.3; MCHC 35.5 % (32.0-36.0); MCV 85 fL (80-95); Monocytes % 9.8; Neutrophils % 61.1; RBC 5.23 10^6/uL (3.93-5.22); RDW 12.3 % (11.7-14.6); RDW-SD 37.5 fL
[2021-12-09 20:25] LABS: ALT 24 U/L (14-59); AST 16 U/L (15-37); Alkaline Phosphatase 82 U/L (46-116); Anion Gap 10.8 mmol/L (3-11); BUN 20 mg/dL (7-18); Bilirubin, Total 0.5 mg/dL (0.2-1.0); CO2 24.2 mmol/L (21.0-32.0); Chloride 103 mmol/L (98-107); Estimated GFR 52.69 (mL/min/1.73m2); Glucose 109 mg/dL (74-106); Sodium 138 mmol/L (136-145); TSH (W/Ref FT4) 1.42 uIU/mL (0.36-3.74); Total Protein 6.5 g/dL (6.4-8.2)
[2021-12-09 21:51] LABS: COMMENT (LAB VIEW ONLY) 91.42 mg/dL; Microalb ug/mg Crea 9.6 ug/mg Cr
== END 2021-12-09 16:48 | disposition home or self-care (01) ==
LOC: NCHCN 16:47
PROVIDERS: PCP Family Medicine; Visit Provider Family Medicine
DX: E11.9 Type 2 diabetes mellitus without complications (principal); F03.91 Unspecified dementia, unspecified severity, with behavioral disturbance
CPT/HCPCS: 80053; 82043; 82570; 84443; 85025